=== PATIENT | female | born 1995 | race African-American/Black ===

== ENCOUNTER 2018-08-20 18:19 | Emergency (ER) | payer SELFPAY ==
[~2018-08-20] VITALS: Ht 154.9 cm; Wt 43.4 kg
[2018-08-20] MEDS ORDERED: FERROUS SULF325 M2 PO (18:33)
[2018-08-20] MEDS ORDERED: PRENATA4 PO (18:33)
[2018-08-20 18:46] LABS: URINE BILIRUBIN - DIPSTICK NEGATIVE (NEGATIVE); URINE BLOOD DIPSTICK TRACE-INTACT (NEGATIVE); URINE COLOR YELLOW; URINE GLUCOSE - DIPSTICK NEGATIVE (NEGATIVE); URINE KETONE 40 mg/dL (NEGATIVE); URINE LEUK ESTERASE NEGATIVE (NEGATIVE); URINE NITRITE - DIPSTICK NEGATIVE (Negative); URINE PROTEIN - DIPSTICK NEGATIVE (NEG-TRACE); URINE UROBILINOGEN - DIPSTICK 0.2 E.U./dL (0.2)
[2018-08-20 19:19] VITALS: BP 105/59
== END 2018-08-20 19:19 | disposition home or self-care (01) | DRG 833 ==
LOC: ED 18:19
DX: O26.892 Other specified pregnancy related conditions, second trimester (principal); R10.30 Lower abdominal pain, unspecified; O99.332 Smoking (tobacco) complicating pregnancy, second trimester; F17.210 Nicotine dependence, cigarettes, uncomplicated; Z3A.14 14 weeks gestation of pregnancy